=== PATIENT | female | born 1960 | race African-American/Black ===

== ENCOUNTER 2022-09-02 16:40 | Emergency (ER) | payer MEDICAID ==
[~2022-09-02] VITALS: Ht 167.6 cm; Wt 65.0 kg
[~2022-09-02 16:40] MED LIST: HYDR25TA PO; METF-414 PO
[2022-09-02 19:42] LABS: HEMATOCRIT 36.2 % (36.0-48.0); HEMOGLOBIN 12.2 g/dL (12.0-16.0); MEAN CORPUSCULAR HEMOGLOBIN 29.5 pg (28.0-32.0); MEAN CORPUSCULAR VOLUME 87.9 fL (81.0-99.0); PLATELET 357 x1000/uL (130-400); RED BLOOD CELL COUNT 4.12 mill/uL (4.2-5.4)
[2022-09-02 19:51] LABS: CHLORIDE 104 mEq/L (98-107)
[2022-09-02] MEDS ORDERED: SODIUM POLYSTYRENE SULFONATE 15 G/60 ML BOT PO ONE (20:45)
[2022-09-02 23:00] VITALS: BP 121/65
== END 2022-09-02 23:25 | disposition home or self-care (01) ==
LOC: ER 16:40
DX: E11.22 Type 2 diabetes mellitus with diabetic chronic kidney disease (principal); I12.9 Hypertensive chronic kidney disease with stage 1 through stage 4 chronic kidney disease, or unspecified chronic kidney disease; N18.9 Chronic kidney disease, unspecified
CPT/HCPCS: 36415; 80053; 85027; 99283